=== PATIENT | male | born 1995 | race Caucasian/White ===

== ENCOUNTER 2018-11-03 17:45 | Emergency (ER) | payer MEDICAID ==
[~2018-11-03] VITALS: Ht 175.3 cm; Wt 59.0 kg
[2018-11-03 18:01] VITALS: BP 144/81
[2018-11-03] MEDS ORDERED: LIDOCAINE /MPF 1% VIAL 5 ML VIAL ONE (19:22)
[2018-11-03] MEDS ORDERED: CEFTRIAXONE 500 MG VIAL ONE (19:22)
[2018-11-03] MEDS ORDERED: AZITHROMYCIN 250 MG TABLET ONE (19:22)
[2018-11-03] MEDS ORDERED: AZITHROMYCIN 250 MG TABLET PO ONE (19:30)
[2018-11-03] MEDS ORDERED: CEFTRIAXONE 500 MG VIAL IM ONE (19:30)
== END 2018-11-03 19:36 | disposition home or self-care (01) ==
LOC: ER 17:48
DX: A64 Unspecified sexually transmitted disease (principal); F12.10 Cannabis abuse, uncomplicated; F17.210 Nicotine dependence, cigarettes, uncomplicated; F10.10 Alcohol abuse, uncomplicated; F41.9 Anxiety disorder, unspecified; Y90.9 Presence of alcohol in blood, level not specified
CPT/HCPCS: 96372; 99283; A4606; J0696; J3490; Z7610

== ENCOUNTER 2018-11-10 17:41 | Emergency (ER) | payer MEDICAID ==
[~2018-11-10] VITALS: Ht 175.3 cm; Wt 58.1 kg
[2018-11-10 17:41] VITALS: BP 129/90
[2018-11-10] MEDS ORDERED: HYDROCODONE/APAP 5/325MG 1 EACH TABLET ONE (18:17)
--- NOTE | 2018-11-10 18:25 | NUR ---
KAIA CLARK AT BS WITH PT, UNABLE TO GIVE URINE SPECIMEN AND UNABLE TO ADMINISTER NORCO AT THIS TIME
[2018-11-10] MEDS ORDERED: HYDROCODONE/APAP 5/325MG 1 EACH TABLET PO ONE (18:30)
[2018-11-10 18:52] LABS: APPEARANCE,URINE Slightly Cloudy (CLEAR); BILIRUBIN,URINE Negative (NEGATIVE); BLOOD, URINE Negative Ery/uL (NEGATIVE); COLOR,URINE Yellow (YELLOW); KETONES,URINE Trace (NEGATIVE); LEUKOCYTE ESTERASE ,URINE Negative (NEGATIVE); NITRITE, URINE Negative (NEGATIVE); PH,URINE 7.5 (5.0-8.0); PROTEIN,URINE Negative (NEGATIVE); UGLUCOSE Negative (NEGATIVE)
[2018-11-10 19:02] LABS: BACTERIA,URINE Few /HPF (None Seen); RBC,URINE 0-2 /HPF (0-2); SQUAMOUS EPITHELIAL CELL,UR Few /HPF (None Seen); WBC,URINE 0-2 /HPF (0-3)
[2018-11-10 19:03] LABS: URINE AMORPHOUS PHOSPHATES Many /HPF (None Seen)
== END 2018-11-10 20:40 | disposition home or self-care (01) ==
LOC: ER 17:45
DX: N45.1 Epididymitis (principal); F12.10 Cannabis abuse, uncomplicated; F17.210 Nicotine dependence, cigarettes, uncomplicated; F10.10 Alcohol abuse, uncomplicated; Y90.9 Presence of alcohol in blood, level not specified
CPT/HCPCS: 76870; 81001; 87491; 87591; 99284; A4606; Z7610; 81000-TC; 87086-TC